=== PATIENT | female | born 1975 | race Caucasian/White ===

== ENCOUNTER 2018-09-14 06:26 | Day surgery (SDC) | payer BC ==
[~2018-09-14] VITALS: Ht 170.2 cm; Wt 100.0 kg
[2018-09-14 06:49] VITALS: BP 125/87; PULSE 79; TEMP 97.7
[2018-09-14] MEDS ORDERED: PROMETRIUM100 MG PO (07:37)
[2018-09-14] MEDS ORDERED: EFFEXOR XR37.5 MG/CA PO (07:37)
[2018-09-14] MEDS ORDERED: PROAIR HFA0.09 MG/AC IH (07:38)
[2018-09-14] MEDS ORDERED: FEMRING0.1 MG/24 VG (07:38)
[2018-09-14] MEDS ORDERED: NATURAL MAGNES200 MG PO (07:40)
[2018-09-14 08:10] VITALS: BP 121/82; PULSE 90; TEMP 98.6
--- NOTE | 2018-09-14 08:10 | NUR ---
Patient brought back to [facility]. Alert and oritented, ambulated to chair without difficulty. Vital signs stable. Denies any pain or nausea. Patient is sleepy at this time. brought back to bedside. Call diaz within reach, will continue to monitor.
[2018-09-14] MEDS ORDERED: PRILOSEC 20MG20 MG PO (08:19)
[2018-09-14 08:25] VITALS: BP 115/73; PULSE 75
--- NOTE | 2018-09-14 08:25 | NUR ---
Vital signs stable. Patient states she would like an apple juice at this time. Will continue to monitor.
[2018-09-14 08:40] VITALS: BP 108/80; PULSE 73
--- NOTE | 2018-09-14 08:40 | NUR ---
Patient states she is feeling well. Does not want anything to eat at this time. Tolerating drink well. Vital signs stable will continue to monitor.
[2018-09-14 08:55] VITALS: BP 101/81; PULSE 91
--- NOTE | 2018-09-14 08:55 | NUR ---
Patient states she needs to use restroom. Ambulated without any difficulty. Will continue to monitor.
--- NOTE | 2018-09-14 09:25 | NUR ---
Discharge instructions reviewed with patient and Jimmy all questions answered. States she is ready to go home. Patient ambulated down to lobby. Will be driven home by .
== END 2018-09-14 09:25 | disposition home or self-care (01) ==
LOC: SDCO 06:26
DX: K21.0 Gastro-esophageal reflux disease with esophagitis (principal); K92.1 Melena; K44.9 Diaphragmatic hernia without obstruction or gangrene; K59.00 Constipation, unspecified; Z85.41 Personal history of malignant neoplasm of cervix uteri; Z92.3 Personal history of irradiation; Z88.2 Allergy status to sulfonamides; F32.9 Major depressive disorder, single episode, unspecified; F41.9 Anxiety disorder, unspecified; J45.909 Unspecified asthma, uncomplicated; Z80.0 Family history of malignant neoplasm of digestive organs; Z83.79 Family history of other diseases of the digestive system; Z87.891 Personal history of nicotine dependence
CPT/HCPCS: J2250; J3010; J7030

== ENCOUNTER 2019-03-26 18:53 | Emergency (ER) | payer BC ==
[~2019-03-26] VITALS: Ht 170.2 cm; Wt 97.7 kg
[~2019-03-26 18:53] MED LIST: EFFEXOR XR37.5 MG/CA PO; FEMRING0.1 MG/24 VG; NATURAL MAGNES200 MG PO; PRILOSEC 20MG20 MG PO; PROAIR HFA0.09 MG/AC IH; PROMETRIUM100 MG PO
[2019-03-26 18:59] VITALS: TEMP 97.7
[2019-03-26 19:48] LABS: BASO % 0.4 % (0.0-2.0); EOS # 0.1 (0.0-0.7); EOS % 1.5 % (0-4.0); GRAN # 2.3 (1.4-6.5); GRAN % 48.6 % (42.2-75.2); HEMATOCRIT 38.5 % (37.0-47.0); HEMOGLOBIN 12.9 g/dl (12.5-16.0); LYMPH # 2.1 (1.2-3.4); LYMPH % 44.2 % (20.0-51.0); MEAN CELL VOLUME 94 fl (80.0-100.0); MEAN CORPUSCULAR HEMOGLOBIN 32 pg (27.0-31.0); MEAN CORPUSCULAR HGB CONC 34 g/dl (33.0-37.0); MEAN PLATELET VOLUME 9.7 fl (7.4-10.4); MONO # 0.2 (0.1-0.6); MONO % 4.7 % (1.7-9.3); PLATELET COUNT 252 K/mm3 (130-400); REDCELL DISTRIBUTION WIDTH-CV 16.1 % (11.5-14.5)
[2019-03-26 20:02] LABS: ALANINE AMINOTRANSFERASE 57 U/L (9-52); ALBUMIN 4.1 gm/dL (3.5-5.0); ALKALINE PHOSPHATASE 108 U/L (50-136); ANION GAP 9 mmol/L (7-16); AST,SGOT 36 U/L (15-37); BILIRUBIN,TOTAL 0.1 mg/dL (0.0-1.0); BLOOD UREA NITROGEN 26 mg/dL (7-17); CALCIUM 9.4 mg/dL (8.4-10.2); CARBON DIOXIDE 26 mmol/L (22-30); CHLORIDE 104 mmol/L (98-107); CREATININE, serum 0.89 (0.52-1.25); GLUCOSE 104 mg/dL (74-106); POTASSIUM 4.6 mmol/L (3.4-5.0); SODIUM 139 mmol/L (137-145); TOTAL PROTEIN 7.6 gm/dL (6.4-8.2)
[2019-03-26 20:11] LABS: TROPONIN-I < 0.012 ng/mL (0.000-0.035)
[2019-03-26 20:38] LABS: COLLECTION METHOD CLEAN CATCH
[2019-03-26 20:47] LABS: PH 5 (5-8); SQUAMOUS EPITHELIAL None Seen /hpf; URINE APPEARANCE Clear; URINE BACTERIA None Seen /hpf; URINE BILIRUBIN Negative (NEGATIVE); URINE BLOOD Negative (NEGATIVE); URINE COLOR Yellow; URINE GLUCOSE Negative (NEGATIVE); URINE KETONE Negative (NEGATIVE); URINE LEUKOCYTE ESTERASE Negative (NEGATIVE); URINE NITRATE Negative (NEGATIVE); URINE PROTEIN(semi-quant) Negative (NEGATIVE); URINE RBC 0-2 /hpf; URINE UROBILINOGEN Negative (NEGATIVE)
[2019-03-26 21:23] VITALS: BP 130/96; PULSE 96
== END 2019-03-26 21:30 | disposition home or self-care (01) ==
LOC: COL.ER 18:53
PROVIDERS: Emergency Medicine
DX: C53.9 Malignant neoplasm of cervix uteri, unspecified (principal); R19.7 Diarrhea, unspecified; E86.0 Dehydration
CPT/HCPCS: J7030

== ENCOUNTER → 2019-10-25 | Outpatient (CLI) | payer BC | LOC: COL.LAB 08:38 | DX: Z20.828 Contact with and (suspected) exposure to other viral communicable diseases (principal) ==

== ENCOUNTER 2021-08-08 19:01 | Emergency (ER) | payer BC ==
[~2021-08-08] VITALS: Ht 170.2 cm; Wt 101.4 kg
[2021-08-08 20:30] LABS: HEMATOCRIT 41.7 % (37.0-47.0); HEMOGLOBIN 14.2 g/dl (12.5-16.0); MEAN CELL VOLUME 87 fl (80.0-100.0); MEAN CORPUSCULAR HEMOGLOBIN 30 pg (27-31); MEAN CORPUSCULAR HGB CONC 34 g/dl (33.0-37.0); MEAN PLATELET VOLUME 9.7 fl (7.4-10.4); PLATELET COUNT 281 K/mm3 (130-400); RED BLOOD COUNT 4.82 M/mm3 (4.10-5.30); REDCELL DISTRIBUTION WIDTH-CV 15.5 % (11.5-14.5)
[2021-08-08 20:46] LABS: ALANINE AMINOTRANSFERASE 37 U/L (0-55); ALBUMIN 4.2 gm/dL (3.5-5.0); ALKALINE PHOSPHATASE 154 U/L (40-150); ANION GAP 12 mmol/L (7-16); AST,SGOT 23 U/L (5-34); BILIRUBIN,TOTAL 0.5 mg/dL (0.2-1.2); BLOOD UREA NITROGEN 12 mg/dL (7-19); CALCIUM 9.9 mg/dL (8.4-10.2); CARBON DIOXIDE 22 mmol/L (22-29); CHLORIDE 102 mmol/L (98-107); CREATININE, serum 1.02 mg/dL (0.57-1.11); GLUCOSE 109 mg/dL (70-99); POTASSIUM 3.9 mmol/L (3.5-4.5); SODIUM 136 mmol/L (136-145); TOTAL PROTEIN 7.9 gm/dL (6.2-8.1)
[2021-08-08 20:57] LABS: TROPONIN-I < 0.010 ng/mL (0.00-0.033)
[2021-08-08 21:09] LABS: ANISOCYTOSIS 1+; BAND 25 % (0-10); LYMPHOCYTE 6 % (20.0-51.0); METAMYELOCYTE 1 % (0-0); NEUTROPHILS 66 % (42.0-75.2); PLATELET ESTIMATE NORMAL (NORMAL)
[2021-08-08 23:11] LABS: COLLECTION METHOD CLEAN CATCH
[2021-08-08 23:17] LABS: MUCOUS Present (NOT PRESENT); PH 6 (5-8); SQUAMOUS EPITHELIAL 0-2 /hpf (0-10); URINE APPEARANCE Clear (CLEAR/HAZY); URINE BACTERIA None Seen /hpf (NONE SEEN); URINE BILIRUBIN Negative (NEGATIVE); URINE BLOOD Negative (NEGATIVE); URINE COLOR Yellow (YELLOW); URINE GLUCOSE Negative (NEGATIVE); URINE KETONE Negative (NEGATIVE); URINE LEUKOCYTE ESTERASE 1+ (NEGATIVE); URINE NITRATE Negative (NEGATIVE); URINE PROTEIN(semi-quant) 1+ (NEGATIVE); URINE UROBILINOGEN Negative (NEGATIVE)
[2021-08-08] MEDS ORDERED: CEFTIN500 MG PO (23:22)
[2021-08-08 23:29] VITALS: BP 119/75; PULSE 107; TEMP 98.5
== END 2021-08-08 23:29 | disposition home or self-care (01) ==
LOC: COL.ER 19:01
PROVIDERS: Emergency Medicine
DX: N39.0 Urinary tract infection, site not specified (principal); R74.02 Elevation of levels of lactic acid dehydrogenase [LDH]; Z88.0 Allergy status to penicillin; Z20.822 Contact with and (suspected) exposure to COVID-19; Z87.891 Personal history of nicotine dependence
CPT/HCPCS: J0696; J1885; J2405; J3010; J7120; Q9967